=== PATIENT | male | born 1945 | race Two or more races ===

== ENCOUNTER 2017-03-19 01:45 | Emergency (ER) | payer MEDICARE ==
[2017-03-19 02:10] VITALS: BP 155/70; PULSE 84; RESP 16; TEMP 98.1; O2SAT 98
--- NOTE | 2017-03-19 02:56 | ED PDOC ---
HPI: Trauma/Fall - HPI Time Seen by Provider: 03/19/17 02:03 Chief Complaint (Nursing): Trauma Chief Complaint (Provider): Trauma History Per: Patient History/Exam Limitations: no limitations Onset/Duration Of Symptoms: Days (x1) Location Of Injury: Anterior: Face (nose) Additional Complaint(s): Vadim Triana is a 71 year old male, with no past medical history, who presents to the emergency department via EMS complaining of nose injury s/p fall onset since yesterday. Patient is a homeless man with multiple medical complaints including lower back and hip pain especially with body movement, and a rash to his groin. Patient denies any numbness, tingling or weakness. PMD: None provided. Past Medical History Reviewed: Historical Data, Nursing Documentation, Vital Signs Vital Signs: Last Vital Signs Temp 98.1 F 03/19/17 02:07 Pulse 84 03/19/17 02:07 Resp 16 03/19/17 02:07 BP 155/70 H 03/19/17 02:07 Pulse Ox 98 03/19/17 02:07 - Family History Family History: States: Unknown Family Hx - Social History Current smoker - smoking cessation education provided: No Alcohol: Occasional Drugs: Denies - Home Medications Home Medications: Ambulatory Orders Medication Instructions Recorded Cyclobenzaprine [Cyclobenzaprine 10 mg PO BID #15 tab 03/19/17 HCl] Ibuprofen [Motrin Tab] 600 mg PO Q6 #30 tab 03/19/17 - Allergies Allergies/Adverse Reactions: Allergies Allergy/AdvReac Type Severity Reaction Status Date / Time No Known Allergies Allergy Verified 03/19/17 02:10 Review of Systems ROS Statement: Except As Marked, All Systems Reviewed And Found Negative ENT: Positive for: Nose Pain (nose injury) Musculoskeletal: Positive for: Back Pain (lower back and hip pain) Skin: Positive for: Rash (to his groin) Neurological: Negative for: Weakness, Numbness (& tingling) Physical Exam - Reviewed Nursing Documentation Reviewed: Yes Vital Signs Reviewed: Yes - Physical Exam Appears: Positive for: Well (poor hygiene), Non-toxic, No Acute Distress Head Exam: Positive for: ATRAUMATIC, NORMAL INSPECTION, NORMOCEPHALIC Skin: Positive for: Normal Color, Warm, Dry Eye Exam: Positive for: EOMI, Normal appearance, PERRL ENT: Positive for: Normal ENT Inspection Neck: Positive for: Normal, Painless ROM, Supple Cardiovascular/Chest: Positive for: Regular Rate, Rhythm. Negative for: Murmur Respiratory: Positive for: Normal Breath Sounds. Negative for: Respiratory Distress Gastrointestinal/Abdominal: Positive for: Normal Exam, Bowel Sounds, Soft. Negative for: Tenderness Back: Negative for: Normal Inspection (tenderness to palpatoin of the right lumbar paraspinal musculature) Extremity: Positive for: Normal ROM (Full strength in lower extremities) Neurologic/Psych: Positive for: Alert, Oriented (x3). Negative for: Motor/ Sensory Deficits - ECG O2 Sat by Pulse Oximetry: 98 (RA) Pulse Ox Interpretation: Normal Medical Decision Making Medical Decision Making: Initial Impression: Back pain s/p fall Initial Plan: --Lumbar spine complete [RAD] --Flexeril 10 mg PO --Motrin Tab 600 mg PO --Pelvis one View [RAD] --reevaluation 4AM: Pt's xrays neg, feeling better, will d/c home. Return precautions given. Scribe Attestation: Documented by Adair Bangura, acting as a scribe for Jason Avalos MD. Provider Scribe Attestation: All medical record entries made by the Scribe were at my direction and personally dictated by me. I have reviewed the chart and agree that the record accurately reflects my personal performance of the history, physical exam, medical decision making, and the department course for this patient. I have also personally directed, reviewed, and agree with the discharge instructions and disposition. Disposition - Clinical Impression Clinical Impression: Back pain - Disposition Referrals: [facility] [Outside] Disposition Time: 04:30 Condition: STABLE Prescriptions: Cyclobenzaprine [Cyclobenzaprine HCl] 10 mg PO BID #15 tab Ibuprofen [Motrin Tab] 600 mg PO Q6 #30 tab Instructions: Acute Low Back Pain (DC), Muscle Spasm (ED), Back Pain (ED), Back Exercises (ED) Forms: [employer] (Persian)
--- NOTE | 2017-03-19 10:00 | RAD ---
PROCEDURE: Radiographs of the pelvis. HISTORY: s/p fall COMPARISON: None. FINDINGS: BONES: Pelvic Bones: Unremarkable. Hips: Mild bilaterally symmetrical degenerative changes. JOINTS: Sacroiliac Joints: Unremarkable. Pubic Symphysis: Unremarkable. OTHER FINDINGS: None. IMPRESSION: No acute findings related to/accounting for the clinical presentation.
--- NOTE | 2017-03-19 10:00 | RAD ---
PROCEDURE: Radiographs of the Lumbar Spine. HISTORY: s/p fall COMPARISON: No prior. FINDINGS: BONES: Mild scoliosis. No evidence of fracture. DISC SPACES: Unremarkable. OTHER FINDINGS: Calcified nonaneurysmal abdominal aorta. IMPRESSION: No acute findings related to/accounting for the clinical presentation.
== END 2017-03-19 05:44 | disposition home or self-care (01) ==
LOC: H.ER 01:45
DX: M54.9 Dorsalgia, unspecified (principal)

== ENCOUNTER 2017-03-31 06:52 | Emergency (ER) | payer MEDICARE ==
[2017-03-31 07:02] VITALS: PULSE 81; TEMP 98.2; O2SAT 98
--- NOTE | 2017-03-31 08:40 | ED PDOC ---
HPI: General Adult Time Seen by Provider: 03/31/17 07:03 Chief Complaint (Nursing): Psychiatric Evaluation Chief Complaint (Provider): Feet Pain History Per: Patient History/Exam Limitations: no limitations Onset/Duration Of Symptoms: Other (3 weeks) Current Symptoms Are (Timing): Still Present Location: Bilateral feet Additional Complaint(s): Vadim Triana is a 71 year old homeless male who presents to the ED for evaluation of bilateral feet for the past 3 weeks. He has no other complaints at this time and has been sleeping throughout his stay in ED. Past Medical History Reviewed: Historical Data, Nursing Documentation, Vital Signs Vital Signs: Last Vital Signs Temp 98.2 F 03/31/17 06:59 Pulse 81 03/31/17 06:59 Resp 17 03/31/17 06:59 BP 130/76 03/31/17 06:59 Pulse Ox 98 03/31/17 08:49 - Medical History PMH: COPD - Family History Family History: States: Unknown Family Hx - Home Medications Home Medications: Ambulatory Orders Medication Instructions Recorded Cyclobenzaprine [Cyclobenzaprine 10 mg PO BID #15 tab 03/19/17 HCl] Ibuprofen [Motrin Tab] 600 mg PO Q6 #30 tab 03/19/17 - Allergies Allergies/Adverse Reactions: Allergies Allergy/AdvReac Type Severity Reaction Status Date / Time No Known Allergies Allergy Verified 03/19/17 02:10 Review of Systems Musculoskeletal: Positive for: Foot Pain (Bilateral) Physical Exam - Physical Exam Appears: Positive for: Non-toxic, No Acute Distress (Unkempt ) Cardiovascular/Chest: Positive for: Regular Rate, Rhythm. Negative for: Murmur Respiratory: Positive for: Normal Breath Sounds. Negative for: Respiratory Distress Extremity: Positive for: Other (Bilateral feet with edema, erythema, and maceration) Neurologic/Psych: Positive for: Alert, Oriented. Negative for: Motor/Sensory Deficits - ECG O2 Sat by Pulse Oximetry: 98 - Progress ED Course And Treament: 03/31/2017 08:45 Spoke with Podiatry Medical Decision Making Medical Decision Making: Impression: Muskuloskeletal pain vs. DVT Plan: [facility] CMP Podiatry consult Scribe Attestation: Documented by Lemuel Doran, acting as a scribe for Liz Samuels MD. Provider Scribe Attestation: All medical record entries made by the Scribe were at my direction and personally dictated by me. I have reviewed the chart and agree that the record accurately reflects my personal performance of the history, physical exam, medical decision making, and the department course for this patient. I have also personally directed, reviewed, and agree with the discharge instructions and disposition. Disposition - Clinical Impression Clinical Impression: Homelessness - Disposition Referrals: [facility] [Outside] Condition: STABLE Forms: [employer] (Italian)
[2017-03-31 09:29] LABS: BASO % 0.4 % (0.0-2.0); EOS # 0.2 K/uL (0.0-0.7); EOS % 2.4 % (0.0-4.0); HEMATOCRIT 36.5 % (35.0-51.0); LYMPH # 2.2 K/uL (1.0-4.3); LYMPH % 21.6 % (20.0-40.0); MEAN CORPUSCULAR HEMOGLOBIN 28.6 pg (27.0-31.0); MEAN CORPUSCULAR HGB CONC 32.9 g/dL (33.0-37.0); MONO # 0.9 K/uL (0.0-0.8); MONO % 9.3 % (0.0-10.0); NEUT # 6.7 K/uL (1.8-7.0); NEUT % 66.3 % (50.0-75.0); RED CELL DISTRIBUTION WIDTH 13.8 % (11.5-14.5)
[2017-03-31 09:35] LABS: ALB/GLOB RATIO 1.1 (1.0-2.1); ALKALINE PHOSPHATASE 72 U/L (38-126); ALT/SGPT 28 U/L (21-72); AST/SGOT 23 U/L (17-59); BILIRUBIN,TOTAL 1.3 mg/dl (0.2-1.3); BLOOD UREA NITROGEN 10 mg/dl (9-20); CALCIUM 9.2 mg/dL (8.4-10.2); CARBON DIOXIDE 26 mmol/L (22-30); CHLORIDE 105 mmol/L (98-107); GFR AFRICAN-AMERICAN > 60; GLUCOSE,RANDOM 203 mg/dL (75-110); POTASSIUM 3.3 MMOL/L (3.6-5.0); SODIUM 142 mmol/l (132-148); TOTAL PROTEIN 7.5 G/DL (6.3-8.2)
[2017-03-31] MEDS ORDERED: Potassium Chloride 20 mEq ER Tab PO STA (09:47)
[2017-03-31] MEDS ORDERED: Povidone Iodine Topical 10% Sol ONE (10:00)
[2017-03-31] MEDS ORDERED: Piperacillin/Tazobact 3.375 GM in Sodium Chloride 0.9% 100 ML IVPB STA (10:05)
--- NOTE | 2017-03-31 10:33 | CP.PCM.CON ---
History of Present Illness - History of Present Illness History of Present Illness: 71 y/o male with PMHx of hyperlipidemia, HTN seen at bedside in ED complaining of redness, and swelling on bilateral feet. Patient states that he is homeless and lives on the streets. Patient states that he feels lazy to get up sometimes and urinates on himself. Patient states that he tries not to do that but this time around he urinated about 5 times on himself and got his shoes wet. Patient states that when he took the shoes off his feet looked like the way they do now. Patient states that he likes it in the ED because they provide meals and its better than the streets so decided to come in. Patient denies of any pain in his feet. Patient denies of any other pedal complains at this time. Patient denies of having any foot doctor. Patient also denies of any recent F/N/V/C/SOB/ CP today. PMHx: HTN, Hyperlipidemia PSHx: Denies Allergies: N.K.D.A Review of Systems - Constitutional Constitutional: As Per HPI Past Patient History - Past Social History Smoking Status: Never Smoked - PULMONARY Hx Chronic Obstructive Pulmonary Disease (COPD): Yes - PSYCHIATRIC Hx Substance Use: No - SURGICAL HISTORY Hx Surgeries: Yes Other/Comment: Abdominal surgery - ANESTHESIA Hx Anesthesia: Yes Hx Anesthesia Reactions: No Meds Home Medications: Home Medication List Medication Instructions Recorded Confirmed Type Amoxicillin/Clavulanate [Augmentin 1 tab PO BID #14 tab 03/31/17 Rx 875 MG-125 MG] Ibuprofen [Motrin] 600 mg PO Q6H PRN #20 tab 03/31/17 Rx Allergies/Adverse Reactions: Allergies Allergy/AdvReac Type Severity Reaction Status Date / Time No Known Allergies Allergy Verified 03/19/17 02:10 - Medications Medications: Current Medications Vancomycin HCl 1 gm/ Sodium (Chloride) 250 mls @ 166.667 mls/hr IVPB STAT STA Stop: 03/31/17 11:34 Piperacillin Sod/Tazobactam (Sod 3.375 gm/ Sodium Chloride) 100 mls @ 100 mls/ hr IVPB STAT STA Stop: 03/31/17 11:04 Physical Exam - Constitutional Appears: Well, Non-toxic, No Acute Distress - Extremities Exam Additional comments: Bilateral lower extremity exam: VASC: DP/PT pulses are palpable 2/4, Cap refill time: < 3 sec to all digits, Temp gradient: warm to warm from proximal to distal, +2 pitting edema noted on dorsum of bilateral feet DERM: no open lesions noted, Interdigital maceration noted in all interspaces, nails are elongated and dystrophic on all digits, erythema no the dorsum of the foot bilaterally extending distal to the ankle joint NEURO: Protective sensation grossly intact ORTHO: No pain or tenderness on palpation of the dorsum of the feet, no pain on active or passive ROM of the bilateral feet at the ankle joint - Neurological Exam Neurological exam: Alert, Oriented x3 - Psychiatric Exam Psychiatric exam: Normal Affect, Normal Mood Results - Vital Signs Recent Vital Signs: Last Vital Signs Temp 98.2 F 03/31/17 06:59 Pulse 81 03/31/17 06:59 Resp 17 03/31/17 06:59 BP 130/76 03/31/17 06:59 Pulse Ox 98 03/31/17 08:58 - Labs Result Diagrams: 03/31/17 09:12 03/31/17 09:12 Labs: Laboratory Results - last 24 hr 03/31/17 03/31/17 09:12 09:12 WBC 10.0 RBC 4.20 L Hgb 12.0 Hct 36.5 MCV 87.0 MCH 28.6 MCHC 32.9 L RDW 13.8 Plt Count 304 MPV 7.0 L Neut % (Auto) 66.3 Lymph % (Auto) 21.6 [place] % (Auto) 9.3 Eos % (Auto) 2.4 Baso % (Auto) 0.4 Neut # 6.7 Lymph # 2.2 [place] # 0.9 H Eos # 0.2 Baso # 0.0 Sodium 142 Potassium 3.3 L Chloride 105 Carbon Dioxide 26 Anion Gap 14 BUN 10 Creatinine 0.7 L Est GFR ( Amer) > 60 Est GFR (Non-Af Amer) > 60 Random Glucose 203 H Calcium 9.2 Total Bilirubin 1.3 AST 23 ALT 28 Alkaline Phosphatase 72 Total Protein 7.5 Albumin 4.0 Globulin 3.5 Albumin/Globulin Ratio 1.1 Assessment & Plan - Assessment and Plan (Free Text) Assessment: 71 y/o male seen at bedside in ED for cellulitis of bilataral feet Plan: Patient seen and evaluated at bedside in ED Patient discussed in details with attending Dr. Summers Vitals and Labs reviewed: afebrile and WBC @ 10.0 Bilateral feet cleaned using saline and bacitracin applied to the dorsum of the feet and betadine applied to the interspace - Dressed using DSD PREM bandage Patient placed in a surgical shoe Patient educated to keep the dressing dry, and clean Patient to be given a dose of Vanc/Zosyn while in the ED Patient to return home with Augmentin and take them daily as prescribed Patient educated if he has any constitutional symptoms then return to ED right away Patient demonstrated verbal understanding Thank you for the Podiatry consult - Date & Time Date: 03/31/17 Time: 10:45
[2017-03-31] MEDS ORDERED: Vancomycin 1 g Inj ONE (10:48)
[2017-03-31] MEDS ORDERED: Potassium Chloride 20 mEq ER Tab PO ONE (10:48)
[2017-03-31] MEDS ORDERED: Piperacillin/Tazobact 3.375 gm Inj IVPB ONE (10:48)
[2017-03-31 14:48] VITALS: BP 129/85; RESP 18
== END 2017-03-31 14:48 | disposition home or self-care (01) ==
LOC: H.ER 06:52
DX: L03.90 Cellulitis, unspecified (principal); R22.43 Localized swelling, mass and lump, lower limb, bilateral; I10 Essential (primary) hypertension; E78.5 Hyperlipidemia, unspecified; Z59.0 Homelessness
CPT/HCPCS: 80053; 85025; 96365; 96366; 96367; 99285; J2543

== ENCOUNTER 2018-05-18 22:04 | Inpatient (IN) | payer OTHER ==
[2018-05-18 22:05] VITALS: BMI 38.4
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
[2018-05-18] MEDS ORDERED: Sodium Chloride 0.9% 1,000 ML IV STA (23:24)
[2018-05-18] MEDS ORDERED: Alum-Mag Hydrox-Simethicone Susp (30 mL) PO STA (23:33)
[2018-05-18 23:58] LABS: URINE BILIRUBIN NEGATIVE (NEGATIVE); URINE BLOOD NEGATIVE (NEGATIVE); URINE CLARITY CLEAR (Clear); URINE COLOR STRAW (YELLOW); URINE GLUCOSE (UA) >=500 mg/dL (Normal); URINE LEUKOCYTE ESTERASE NEG Leu/uL (Negative); URINE PROTEIN 100 mg/dL (NEGATIVE); URINE UROBILINOGEN 0.2-1.0 mg/dL (0.2-1.0)
[2018-05-18 23:59] LABS: BASO % 0.5 % (0.0-2.0); EOS # 0.3 K/uL (0.0-0.7); EOS % 3.5 % (0.0-4.0); HEMOGLOBIN 12.2 g/dL (12.0-18.0); LYMPH # 2.9 K/uL (1.0-4.3); LYMPH % 33.8 % (20.0-40.0); MEAN CELL VOLUME 88.6 fl (80.0-94.0); MEAN CORPUSCULAR HEMOGLOBIN 29.9 pg (27.0-31.0); MEAN CORPUSCULAR HGB CONC 33.7 g/dL (33.0-37.0); MEAN PLATELET VOLUME 7.7 fl (7.2-11.7); MONO # 0.8 K/uL (0.0-0.8); MONO % 9.7 % (0.0-10.0); NEUT # 4.5 K/uL (1.8-7.0); NEUT % 52.5 % (50.0-75.0); NRBC % 0.1 % (0.0-0.0); RBC 4.1 Mil/uL (4.40-5.90); RED CELL DISTRIBUTION WIDTH 13.8 % (11.5-14.5); WHITE BLOOD COUNT 8.6 K/uL (4.8-10.8)
[2018-05-19 00:09] LABS: ALB/GLOB RATIO 1.2 (1.0-2.1); ALBUMIN 4.1 g/dL (3.5-5.0); ALT/SGPT 21 U/L (21-72); AST/SGOT 21 U/L (17-59); BLOOD UREA NITROGEN 21 mg/dl (9-20); CALCIUM 10.1 mg/dL (8.4-10.2); GFR NON-AFRICAN AMERICAN > 60
[2018-05-19 00:18] LABS: BARBITURATES, UR NEGATIVE (NEGATIVE); BENZODIAZEPINES, UR NEGATIVE (NEGATIVE); OPIATES, UR NEGATIVE (NEGATIVE); PHENCYCLIDINE, UR NEGATIVE (NEGATIVE)
[2018-05-19] MEDS ORDERED: Magnesium Hydroxide Susp 30 ml UD PO PRN (04:27)
[2018-05-19] MEDS ORDERED: Bismuth Subsalicylate 262 mg/15 ml Sus (240 ml) PO PRN (04:27)
[2018-05-19] MEDS ORDERED: Alum-Mag Hydrox-Simethicone Susp (30 mL) PO PRN (04:27)
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
[2018-05-19 08:30] LABS: IRON 69 ug/dL (49-181)
[2018-05-19 08:40] LABS: % IRON SATURATION 26 % (20-55); TOTAL IRON BINDING CAPACITY 263 ug/dL (250-450)
[2018-05-19 08:41] LABS: T4 7.46 ug/dl (5.5-11.0)
[2018-05-19] MEDS: Insulin Lispro (humaLOG) 100 Units/ml Inj SC SCH ×3 (08:49→16:12)
--- NOTE | 2018-05-19 10:44 | CARD ---
APPROVED REPORT Date of service: 05/18/2018 EKG Measurement Heart [id number] <Conclusion> Sinus rhythm with frequent premature ventricular complexes Left axis deviation Minimal voltage criteria for LVH, may be normal variant Abnormal ECG
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
--- NOTE | 2018-05-19 13:01 | RAD ---
Date of service: 05/18/2018 HISTORY: admit COMPARISON: 12/06/ FINDINGS: LUNGS: No active pulmonary disease. PLEURA: No significant pleural effusion identified, no pneumothorax apparent. CARDIOVASCULAR: No aortic atherosclerotic calcification present. Normal cardiac size. No pulmonary vascular congestion. OSSEOUS STRUCTURES: No significant abnormalities. VISUALIZED UPPER ABDOMEN: Normal. OTHER FINDINGS: None. IMPRESSION: No active disease.
--- NOTE | 2018-05-19 15:20 | CP.PCM.CON ---
History of Present Illness - History of Present Illness History of Present Illness: 72 yo male with history of HTN, COPD and DM2 admitted to [facility] because of worsening depression. Review of Systems - Review of Systems All systems: reviewed and no additional remarkable complaints except (aside from those mentioned above, 12 point system review were negative by me) Past Patient History - Infectious Disease Hx of Infectious Diseases: None - Tetanus Immunizations Tetanus Immunization: Unknown - Past Medical History & Family History Past Medical History?: Yes - Past Social History Smoking Status: Former Smoker Chewing Tobacco Use: No Cigar Use: No Alcohol: Other (former alcoholic) Drugs: Denies Home Situation {Lives}: Homeless - CARDIAC Hx Hypertension: Yes - PULMONARY Hx Asthma: Yes Hx Chronic Obstructive Pulmonary Disease (COPD): Yes Hx Pneumonia: Yes (a year ago) - NEUROLOGICAL Hx Seizures: No - ENDOCRINE/METABOLIC Hx Diabetes Mellitus Type 2: Yes - HEMATOLOGICAL/ONCOLOGICAL Hx Human Immunodeficiency Virus (HIV): No - MUSCULOSKELETAL/RHEUMATOLOGICAL Hx Falls: No Hx Rheumatoid Arthritis: Yes (on hands) - GENITOURINARY/GYNECOLOGICAL Hx Sexually Transmitted Disorders: No - PSYCHIATRIC Hx Substance Use: No - SURGICAL HISTORY Hx Tonsillectomy: Yes - ANESTHESIA Hx Anesthesia: Yes Hx Anesthesia Reactions: No Hx Malignant Hyperthermia: No Meds Allergies/Adverse Reactions: Allergies Allergy/AdvReac Type Severity Reaction Status Date / Time No Known Allergies Allergy Verified 05/19/18 04:15 - Medications Medications: Current Medications Acetaminophen (Tylenol 325mg Tab) 650 mg PO Q4 PRN PRN Reason: Pain, moderate (4-7) Al Hydrox/Mg Hydrox/Simethicone (Maalox Plus 30 Ml) 30 ml PO Q4 PRN PRN Reason: Dyspepsia Bismuth Subsalicylate (Pepto-Bismol) 524 mg PO Q4 PRN PRN Reason: Diarrhea Insulin Human Lispro (Humalog) 0 units SC [facility]; Protocol Last Admin: 05/19/18 12:49 Dose: 2 units Lorazepam (Ativan) 0.5 mg PO HS PRN PRN Reason: Insomnia Stop: 06/02/18 04:28 Lorazepam (Ativan) 0.5 mg PO Q6 PRN PRN Reason: Anixety/Agitation Stop: 06/02/18 04:28 Magnesium Hydroxide (Milk Of Magnesia) 30 ml PO HS PRN PRN Reason: Constipation Sertraline HCl (Zoloft) 50 mg PO DAILY TENISHA Last Admin: 05/19/18 12:49 Dose: 50 mg Physical Exam - Constitutional Appears: No Acute Distress - Head Exam Head Exam: ATRAUMATIC - Eye Exam Eye Exam: absent: Scleral icterus - ENT Exam ENT Exam: Mucous Membranes Moist - Neck Exam Neck exam: Negative for: Meningismus - Respiratory Exam Respiratory Exam: absent: Rales, Rhonchi, Wheezes, Respiratory Distress - Cardiovascular Exam Cardiovascular Exam: REGULAR RHYTHM, +S1, +S2 - GI/Abdominal Exam GI & Abdominal Exam: Soft. absent: Tenderness - Rectal Exam Rectal Exam: Deferred - Extremities Exam Extremities exam: Positive for: pedal edema - Neurological Exam Neurological exam: Alert, Oriented x3 - Psychiatric Exam Psychiatric exam: Normal Affect - Skin Skin Exam: Dry, Intact Results - Vital Signs Recent Vital Signs: Last Vital Signs Temp 98.0 F 05/19/18 05:38 Pulse 80 05/19/18 05:38 Resp 18 05/19/18 05:38 BP 165/84 H 05/19/18 05:38 Pulse Ox 98 05/19/18 04:08 - Labs Result Diagrams: 05/18/18 23:48 05/18/18 23:48 Labs: Laboratory Results - last 24 hr 05/18/18 05/18/18 05/18/18 23:03 23:48 23:48 WBC 8.6 RBC 4.10 L Hgb 12.2 Hct 36.3 MCV 88.6 D MCH 29.9 MCHC 33.7 RDW 13.8 Plt Count 208 MPV 7.7 Neut % (Auto) 52.5 Lymph % (Auto) 33.8 [place] % (Auto) 9.7 Eos % (Auto) 3.5 Baso % (Auto) 0.5 Neut # (Auto) 4.5 Lymph # (Auto) 2.9 [place] # (Auto) 0.8 Eos # (Auto) 0.3 Baso # (Auto) 0.0 Sodium 143 Potassium 4.6 Chloride 105 Carbon Dioxide 29 Anion Gap 14 BUN 21 H Creatinine 1.0 Est GFR ( Amer) > 60 Est GFR (Non-Af Amer) > 60 POC Glucose (mg/dL) 321 H Random Glucose 323 H Hemoglobin A1c Calcium 10.1 Iron TIBC % Saturation Ferritin Total Bilirubin 0.5 AST 21 ALT 21 D Alkaline Phosphatase 56 Total Protein 7.5 Albumin 4.1 Globulin 3.4 Albumin/Globulin Ratio 1.2 Triglycerides Cholesterol LDL Cholesterol Direct HDL Cholesterol Vitamin B12 Folate Free T4 Thyroxine (T4) TSH 3rd Generation Urine Color Urine Clarity Urine pH Ur Specific [place] Urine Protein Urine Glucose (UA) Urine Ketones Urine Blood Urine Nitrate Urine Bilirubin Urine Urobilinogen Ur Leukocyte Esterase Urine RBC (Auto) Urine Microscopic WBC Urine Opiates Screen Urine Methadone Screen Ur Barbiturates Screen Ur Phencyclidine Scrn Ur Amphetamines Screen U Benzodiazepines Scrn U Oth Cocaine Metabols U Cannabinoids Screen Alcohol, Quantitative < 10 05/18/18 05/18/18 05/19/18 23:48 23:48 03:59 WBC RBC Hgb Hct MCV MCH MCHC RDW Plt Count MPV Neut % (Auto) Lymph % (Auto) [place] % (Auto) Eos % (Auto) Baso % (Auto) Neut # (Auto) Lymph # (Auto) [place] # (Auto) Eos # (Auto) Baso # (Auto) Sodium Potassium Chloride Carbon Dioxide Anion Gap BUN Creatinine Est GFR ( Amer) Est GFR (Non-Af Amer) POC Glucose (mg/dL) 220 H Random Glucose Hemoglobin A1c Calcium Iron TIBC % Saturation Ferritin Total Bilirubin AST ALT Alkaline Phosphatase Total Protein Albumin Globulin Albumin/Globulin Ratio Triglycerides Cholesterol LDL Cholesterol Direct HDL Cholesterol Vitamin B12 Folate Free T4 Thyroxine (T4) TSH 3rd Generation Urine Color Straw Urine Clarity Clear Urine pH 6.0 Ur Specific [place] 1.023 Urine Protein 100 Urine Glucose (UA) >=500 Urine Ketones Negative Urine Blood Negative Urine Nitrate Negative Urine Bilirubin Negative Urine Urobilinogen 0.2-1.0 Ur Leukocyte Esterase Neg Urine RBC (Auto) 2 Urine Microscopic WBC 1 Urine Opiates Screen Negative Urine Methadone Screen Negative Ur Barbiturates Screen Negative Ur Phencyclidine Scrn Negative Ur Amphetamines Screen Negative U Benzodiazepines Scrn Negative U Oth Cocaine Metabols Negative U Cannabinoids Screen Negative Alcohol, Quantitative 05/19/18 05/19/18 05/19/18 08:02 08:02 08:02 WBC RBC Hgb Hct MCV MCH MCHC RDW Plt Count MPV Neut % (Auto) Lymph % (Auto) [place] % (Auto) Eos % (Auto) Baso % (Auto) Neut # (Auto) Lymph # (Auto) [place] # (Auto) Eos # (Auto) Baso # (Auto) Sodium Potassium Chloride Carbon Dioxide Anion Gap BUN Creatinine Est GFR ( Amer) Est GFR (Non-Af Amer) POC Glucose (mg/dL) Random Glucose Hemoglobin A1c 9.3 H D Calcium Iron TIBC % Saturation Ferritin 115.0 Total Bilirubin AST ALT Alkaline Phosphatase Total Protein Albumin Globulin Albumin/Globulin Ratio Triglycerides 150 H Cholesterol 150 LDL Cholesterol Direct 101 HDL Cholesterol 32 Vitamin B12 212 L Folate 14.0 Free T4 1.04 Thyroxine (T4) 7.46 TSH 3rd Generation 1.98 Urine Color Urine Clarity Urine pH Ur Specific [place] Urine Protein Urine Glucose (UA) Urine Ketones Urine Blood Urine Nitrate Urine Bilirubin Urine Urobilinogen Ur Leukocyte Esterase Urine RBC (Auto) Urine Microscopic WBC Urine Opiates Screen Urine Methadone Screen Ur Barbiturates Screen Ur Phencyclidine Scrn Ur Amphetamines Screen U Benzodiazepines Scrn U Oth Cocaine Metabols U Cannabinoids Screen Alcohol, Quantitative 05/19/18 05/19/18 08:08 11:34 WBC RBC Hgb Hct MCV MCH MCHC RDW Plt Count MPV Neut % (Auto) Lymph % (Auto) [place] % (Auto) Eos % (Auto) Baso % (Auto) Neut # (Auto) Lymph # (Auto) [place] # (Auto) Eos # (Auto) Baso # (Auto) Sodium Potassium Chloride Carbon Dioxide Anion Gap BUN Creatinine Est GFR ( Amer) Est GFR (Non-Af Amer) POC Glucose (mg/dL) 242 H Random Glucose Hemoglobin A1c Calcium Iron 69 TIBC 263 % Saturation 26 Ferritin Total Bilirubin AST ALT Alkaline Phosphatase Total Protein Albumin Globulin Albumin/Globulin Ratio Triglycerides Cholesterol LDL Cholesterol Direct HDL Cholesterol Vitamin B12 Folate Free T4 Thyroxine (T4) TSH 3rd Generation Urine Color Urine Clarity Urine pH Ur Specific [place] Urine Protein Urine Glucose (UA) Urine Ketones Urine Blood Urine Nitrate Urine Bilirubin Urine Urobilinogen Ur Leukocyte Esterase Urine RBC (Auto) Urine Microscopic WBC Urine Opiates Screen Urine Methadone Screen Ur Barbiturates Screen Ur Phencyclidine Scrn Ur Amphetamines Screen U Benzodiazepines Scrn U Oth Cocaine Metabols U Cannabinoids Screen Alcohol, Quantitative Assessment & Plan (1) Depression Status: Acute Comment: psyche is managing (2) HTN (hypertension) Status: Chronic Comment: BP elevated. patient not on any anti-hypertensive. Lisinopril 10mg PO daily (3) Diabetes mellitus, type II Status: Chronic Comment: accuchek ACHS. HgA1C: 6.1 (08/19/17). repeat HgA1C, BMP in am. Metformin 500mg PO daily (4) COPD (chronic obstructive pulmonary disease) Status: Chronic Comment: Albuterol inhaler 2 puffs q 4hrs prn for SOB/wheezing
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
[2018-05-19] MEDS ORDERED: Albuterol HFA 90 mcg/actuation (8 g) INH PRN (15:35)
[2018-05-19] MEDS: Mupirocin 2% Cream TOP SCH (17:50)
[2018-05-20] MEDS: Insulin Lispro (humaLOG) 100 Units/ml Inj SC SCH ×5 (00:12→21:16)
[2018-05-20 07:44] LABS: BLOOD UREA NITROGEN 16 mg/dl (9-20); GFR NON-AFRICAN AMERICAN > 60
[2018-05-20] MEDS: Mupirocin 2% Cream TOP SCH ×2 (09:10→16:59)
--- NOTE | 2018-05-20 11:24 | CP.PCM.PN ---
Subjective - Date & Time of Evaluation Date of Evaluation: 05/20/18 Time of Evaluation: 11:19 - Subjective Subjective: Podiatry consult note for Dr. Mcgill: 72 yo male patient seen and evaluated at bedside with Dr. Mcgill for excoriations and cellulitis to bilateral legs. Patient is resting comfortably in bed in NAD. Denies any pain to b/l lower extremities. Denies any other pedal complaints at this time. Denies N/V/F/SOB/CP. Objective - Vital Signs/Intake and Output Vital Signs (last 24 hours): Temp Pulse Resp BP Pulse Ox 97.7 F 72 20 138/64 98 05/20/18 06:00 05/20/18 09:13 05/20/18 06:00 05/20/18 09:13 05/19/18 04:08 - Medications Medications: Current Medications Acetaminophen (Tylenol 325mg Tab) 650 mg PO Q4 PRN PRN Reason: Pain, moderate (4-7) Al Hydrox/Mg Hydrox/Simethicone (Maalox Plus 30 Ml) 30 ml PO Q4 PRN PRN Reason: Dyspepsia Albuterol (Ventolin Hfa 90 Mcg/Actuation (8 G)) 2 puff INH RQ4 PRN PRN Reason: Shortness of Breath Bismuth Subsalicylate (Pepto-Bismol) 524 mg PO Q4 PRN PRN Reason: Diarrhea Cephalexin Monohydrate (Keflex) 500 mg PO TID@0800,1400,2000 [facility]; Protocol Last Admin: 05/20/18 09:11 Dose: 500 mg Hydrocortisone (Cortizone 0.5% Cream) 1 applic TOP BID [facility] Last Admin: 05/20/18 09:10 Dose: 1 applic Insulin Human Lispro (Humalog) 0 units SC ACHS [facility]; Protocol Last Admin: 05/20/18 09:12 Dose: Not Given Lisinopril (Zestril) 10 mg PO DAILY [facility] Last Admin: 05/20/18 09:13 Dose: 10 mg Lorazepam (Ativan) 0.5 mg PO HS PRN PRN Reason: Insomnia Stop: 06/02/18 04:28 Lorazepam (Ativan) 0.5 mg PO Q6 PRN PRN Reason: Anixety/Agitation Stop: 06/02/18 04:28 Magnesium Hydroxide (Milk Of Magnesia) 30 ml PO HS PRN PRN Reason: Constipation Metformin HCl (Glucophage) 500 mg PO BRK [facility] Last Admin: 05/20/18 09:12 Dose: 500 mg Mupirocin (Bactroban Cream) 1 applic TOP BID [facility] Last Admin: 05/20/18 09:10 Dose: 1 applic Sertraline HCl (Zoloft) 50 mg PO DAILY [facility] Last Admin: 05/20/18 09:14 Dose: 50 mg - Labs Labs: 05/18/18 23:48 05/20/18 07:00 - Constitutional Appears: Well, Non-toxic, No Acute Distress - Head Exam Head Exam: ATRAUMATIC, NORMOCEPHALIC - Extremities Exam Additional comments: B/L lower extremity focused exam: Vasc: DP/PT nonpalpable secondary to edema, CFT < 3 seconds, TG warm to warm, no increased skin temp noted to erythema, +2 pitting edema pretibial and perimalleolar b/l Ortho: Previous right fifth digit amputation, no pain upon palpation Neuro: Gross and protective sensation intact bilaterally Derm: no open lesions, hyperkeratotic skin noted on the anterior aspect of legs b/l L>R, cellulitis noted to the anterior aspect of the legs b/l, multiples papules noted on the anterior aspect of the leg b/l from the knee to the ankle joint. No malodor, hypertrophic mycotic nails x 9 - Neurological Exam Neurological Exam: Alert, Awake - Psychiatric Exam Psychiatric exam: Depressed - Skin Skin Exam: Warm Assessment and Plan - Assessment and Plan (Free Text) Assessment: 72 yo male seen and evaluated at bedside for papules on the anterior aspect of legs b/l with cellulitis Plan: Patient seen and evaluated at bedside with Dr. Nano THOMAS, Absent leukocytosis Continue with IV Keflex No dressing applied to b/l lower extremities Bactroban and corticosteroid cream ordered; to be applied by nurse BID Will continue to follow the patient while in house
--- NOTE | 2018-05-20 12:14 | PCM.PYCHPN ---
Psychiatric Progress Note - Psychiatric Progress Note Patient seen today, length of contact: chart reviewed case discussed with team Patient Chief Complaint: was feeling depressed down states is abit calmer in hospital. staff report pt adherent with treatment. seen walking about unit. pt seen by podiatry today. Problems Identified/Issues Discussed: alteration in mood alteration in skin integrity Medical Problems: per chart, pt being followed by podiatry and hospitalist Diagnostic Results: per psychiatry per medicine per podiatry per nursing per social work per recreational therapy DSM 5 Symptoms Update: alteration in mood depression with suicidal ideations Medication Change: No Medical Record Reviewed: Yes Consults ordered or reviewed: hospitalist podiatry Mental Status Examination - Cognitive Function Orientation: Person, Place, Situation Attention: WNL Concentration: WNL Association: WNL Fund of Knowledge: WN Decription of patient's judgement and insights: impaired - Mood Mood: Depressed - Affect Affect: Broad - Speech Speech: Soft - Formal Thought Process Formal Thought Process: Loosening of associations - Suicidal Ideation Plan: less without specific plan contracts for safety - Homicidal Ideation Homicidal Ideation: No Goal/Treatment Plan - Goal/Treatment Plan Need for Continued Stay: Remain at risks for inpatient hospitalization, Severe depression anxiety, Discharge may exacerbated symptoms Progress Toward Problem(s) and Goals/Treatment Plan: inpt milieu adjust meds per clinical status pt was started on sertaline 40mg po yesterday pt seen by podiatry to day, no dressing , skin care per orders, continue IV antibiotics discharge planning in progress Estimated Date of D/C: 05/26/18 - Smoking Cessation Smoking Cessation Initiated: No Reason for not providing: pt defers
[2018-05-21] MEDS: Insulin Lispro (humaLOG) 100 Units/ml Inj SC SCH ×4 (09:10→21:09)
[2018-05-21] MEDS: Mupirocin 2% Cream TOP SCH ×2 (09:11→21:11)
--- NOTE | 2018-05-21 09:47 | PCM.PYCHPN ---
Psychiatric Progress Note - Psychiatric Progress Note Patient seen today, length of contact: chart reviewed case discussed with team Patient Chief Complaint: my mood is better with the medicine Problems Identified/Issues Discussed: pt evaluated, reported improved mood with zoloft, no reported side effects, no current changes in appetite, continues to have interrupted sleep, denied S/H I denied perceptual disturbances DSM 5 Symptoms Update: depression Medication Change: No Medical Record Reviewed: Yes Mental Status Examination - Cognitive Function Orientation: Person, Place, Situation Attention: WNL Concentration: WNL Association: WNL Fund of Knowledge: WNL - Mood Mood: Depressed - Affect Affect: Broad - Speech Speech: Soft - Formal Thought Process Formal Thought Process: Loosening of associations - Suicidal Ideation Suicidal Ideation: No - Homicidal Ideation Homicidal Ideation: No Goal/Treatment Plan - Goal/Treatment Plan Need for Continued Stay: Remain at risks for inpatient hospitalization, Severe depression anxiety, Discharge may exacerbated symptoms Progress Toward Problem(s) and Goals/Treatment Plan: continue current medications group and supportive therapy Estimated Date of D/C: 05/26/18
[2018-05-22] MEDS: Mupirocin 2% Cream TOP SCH ×2 (09:20→17:30)
[2018-05-22] MEDS: Insulin Lispro (humaLOG) 100 Units/ml Inj SC SCH ×4 (09:21→22:05)
--- NOTE | 2018-05-22 10:15 | PCM.PYCHPN ---
Psychiatric Progress Note - Psychiatric Progress Note Patient seen today, length of contact: Pt evaluated, chart reviewed, case discussed w/ team Patient Chief Complaint: Depression Problems Identified/Issues Discussed: Pt continues to report feeling depressed, hopeless and feels distressed by being homeless. No acute AH/VH/SI/HI. Medication Change: No Medical Record Reviewed: Yes Consults ordered or reviewed: Medicine consult Mental Status Examination - Cognitive Function Orientation: Person, Place, Situation, Time Memory: Intact Attention: WNL Concentration: WNL Association: WNL Fund of Knowledge: WN Decription of patient's judgement and insights: Improving I/J - Mood Mood: Depressed - Affect Affect: Constricted - Speech Speech: Soft - Formal Thought Process Formal Thought Process: Loosening of associations Psychotic Thoughts and Behaviors: NO AH/VH/paranoia - Suicidal Ideation Suicidal Ideation: No - Homicidal Ideation Homicidal Ideation: No Goal/Treatment Plan - Goal/Treatment Plan Need for Continued Stay: Severe depression anxiety, Discharge may exacerbated symptoms Progress Toward Problem(s) and Goals/Treatment Plan: Adjustment Disorder w/ Depressed Mood vs Major Depressive Disorder -Continue Zoloft -Individual and group therapy -Medicine consult -Psychoeducation -Disposition planning
[2018-05-23 03:07] VITALS: O2SAT 96
[2018-05-23 06:12] VITALS: RESP 19; TEMP 97.5
[2018-05-23] MEDS: Insulin Lispro (humaLOG) 100 Units/ml Inj SC SCH (08:13)
[2018-05-23 08:16] VITALS: BP 156/70; PULSE 72
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
[2018-05-23] MEDS: Mupirocin 2% Cream TOP SCH (10:01)
== END 2018-05-23 13:00 | disposition home or self-care (01) | DRG 881 ==
LOC: H.ER 22:04 → H.ERHOLD 05-19 02:27 → H.STEP 05-19 04:24
PROVIDERS: ADMIT Psychiatry & Neurology Psychiatry; ATTEND Psychiatry & Neurology Psychiatry
PROC: GZHZZZZ Group Psychotherapy (ICD-10-PCS; principal; 2018-05-19)
PROC: GZ56ZZZ Individual Psychotherapy, Supportive (ICD-10-PCS; 2018-05-19)
DX: F43.21 Adjustment disorder with depressed mood (principal); R45.851 Suicidal ideations; L03.116 Cellulitis of left lower limb; L03.115 Cellulitis of right lower limb; E11.65 Type 2 diabetes mellitus with hyperglycemia; Z59.0 Homelessness; M06.9 Rheumatoid arthritis, unspecified; I10 Essential (primary) hypertension; J44.9 Chronic obstructive pulmonary disease, unspecified; Z87.891 Personal history of nicotine dependence; L60.2 Onychogryphosis; Z89.421 Acquired absence of other right toe(s)